=== PATIENT | male | born 1970 | race African-American/Black ===

== ENCOUNTER 2020-06-07 07:13 | Day surgery (SDC) | payer OTHER ==
[~2020-06-07] VITALS: Ht 165.1 cm; Wt 89.3 kg
[2020-06-07 08:07] VITALS: BP 138/82
[2020-06-07 12:08] VITALS: BP 143/80
== END 2020-06-07 12:10 | disposition home or self-care (01) ==
LOC: GI 07:13 → OR 11:00 → GI 11:00
PROVIDERS: ATTEND Internal Medicine Gastroenterology
DX: K62.5 Hemorrhage of anus and rectum (principal); K64.4 Residual hemorrhoidal skin tags; K64.8 Other hemorrhoids; Z80.0 Family history of malignant neoplasm of digestive organs
CPT/HCPCS: 45378; J1200; J1610; J2250; J2310; J3010; J3490